=== PATIENT | female | born 2000 | race Caucasian/White ===

== ENCOUNTER 2023-10-16 18:37 | Emergency (ER) | payer SELFPAY ==
[~2023-10-16] VITALS: Ht 160 cm; Wt 72.7 kg
[2023-10-16 19:11] VITALS: BP 145/88; PULSE 89; RESP 16; TEMP 98; O2SAT 98
== END 2023-10-16 19:13 ==
LOC: ER 18:37
DX: S20.412A Abrasion of left back wall of thorax, initial encounter (principal); V49.3XXA Car occupant (driver) (passenger) injured in unspecified nontraffic accident, initial encounter; Y93.89 Activity, other specified; Y92.89 Other specified places as the place of occurrence of the external cause; Y99.8 Other external cause status
CPT/HCPCS: 99283